=== PATIENT | male | born 1955 | race Caucasian/White ===

== ENCOUNTER 2024-05-28 07:43 | Outpatient (CLI) | payer MEDICARE, OTHER ==
[2024-05-28 08:52] LABS: #Basophils 0.05 10x3/uL (0.0-0.2); #Eosinophils 0.29 10x3/uL (0.0-0.5); #Monocytes 0.43 10x3/uL (0.0-1.1); #Neutrophils 2.41 10x3/uL (1.5-8.4); %Basophils 1.2 % (0.0-2.0); %Eosinophils 6.9 % (0.0-6.0); %Lymphocytes 24.6 % (18.0-47.0); %Monocytes 10.2 % (0.0-10.0); %Neutrophils 56.9 % (40.0-75.0); Hematocrit 43.8 % (38.8-50.0); Mean Corpuscular Hemoglobin 28.1 pg (27.0-33.0); Mean Corpuscular Volume 87.8 fL (81.2-95.1); Mean Platelet Volume 11.8 fL (7.4-10.4); Platelet Count 185 10x3/uL (150-450); RBC Distribution Width 13.2 % (11.5-14.5); Red Blood Cell (RBC) Count 4.99 10x6/uL (4.32-5.72); White Blood Cell (WBC) Count 4.2 10x3/uL (3.5-10.5)
[2024-05-28 10:15] LABS: ALT (SGPT) 16 U/L (8-55); AST (SGOT) 17 U/L (5-34); Albumin 4.3 g/dL (3.4-4.8); Alkaline Phosphatase 84 U/L (40-110); Anion Gap 13 mmol/L (10-20); BUN (Urea Nitrogen) 12 mg/dL (8.4-25.7); Bilirubin, Direct 0.2 mg/dL (0.1-0.3); Bilirubin, Total 0.4 mg/dL (0.2-1.2); Calc. Creatinine Clearance 0 mL/min (70-130); Calcium 9.8 mg/dL (7.8-10.44); Carbon Dioxide 28 mmol/L (23-31); Chloride 106 mmol/L (98-107); Estimated GFR 98; Glucose 74 mg/dL (80-115); Potassium 4.5 mmol/L (3.5-5.1); Sodium 142 mmol/L (136-145)
== END 2024-05-28 07:44 | disposition home or self-care (01) ==
LOC: CSHLAB 07:43
PROVIDERS: ATTEND Surgery
DX: Z01.818 Encounter for other preprocedural examination (principal); K82.4 Cholesterolosis of gallbladder
CPT/HCPCS: 80048; 80076; 85025; 93005; 93010

== ENCOUNTER 2024-05-30 07:47 | Day surgery (SDC) | payer MEDICARE, OTHER ==
[2024-05-28 08:31] VITALS: BMI 21.9
[2024-05-30] MEDS ORDERED: Bupivacaine/Epinephrine 0.25% 30 ML VIAL ONE (08:47)
[2024-05-30] MEDS ORDERED: PROPOFOL 20 ML ONE (08:53)
[2024-05-30] MEDS ORDERED: Lidocaine 1% PF 5 ML VIAL ONE ×2 (08:53→10:28)
[2024-05-30] MEDS ORDERED: fentaNYL 50 mcg/mL 1 mL Vial ONE ×2 (08:53→09:58)
[2024-05-30] MEDS ORDERED: Rocuronium Bromide 10 MG/ML (10ML VIAL) ONE ×2 (08:53→10:28)
[2024-05-30] MEDS ORDERED: CEFAZOLIN 2 GM VIAL ONE (08:55)
[2024-05-30] MEDS ORDERED: Dexamethasone 20 MG/5 ML VIAL ONE (09:18)
[2024-05-30] MEDS ORDERED: Ondansetron PF 4 MG/2 ML Vial ONE (09:18)
[2024-05-30] MEDS ORDERED: Bupivacaine HCl 0.5%/Epinephrine 1:200,000/PF 30 ml Vial ONE (09:20)
[2024-05-30] MEDS ORDERED: ePHEDrine Sulfate 50 MG/10 ML VIAL ONE (09:22)
[2024-05-30] MEDS ORDERED: Ketorolac Tromethamine 30 MG (1 mL) VIAL ONE (09:42)
[2024-05-30] MEDS ORDERED: HYDROcodone/Acetaminophen 5/325 mg Tablet ONE (10:51)
== END 2024-05-30 11:18 | disposition home or self-care (01) ==
LOC: CSHSDC 07:47
PROVIDERS: ATTEND Surgery
PROC: 0FT44ZZ Resection of Gallbladder, Percutaneous Endoscopic Approach (ICD-10-PCS; principal; 2024-05-30)
DX: K81.1 Chronic cholecystitis (principal); K82.8 Other specified diseases of gallbladder; K21.9 Gastro-esophageal reflux disease without esophagitis; I10 Essential (primary) hypertension; E78.5 Hyperlipidemia, unspecified; J45.909 Unspecified asthma, uncomplicated; B19.20 Unspecified viral hepatitis C without hepatic coma; F17.290 Nicotine dependence, other tobacco product, uncomplicated; Z90.49 Acquired absence of other specified parts of digestive tract; Z79.82 Long term (current) use of aspirin; Z79.899 Other long term (current) drug therapy
CPT/HCPCS: 47562; C1889; J1100; J1885; J2405; J2704; J3010; S2900; 88304